=== PATIENT | male | born 1970 | race Two or more races ===

== ENCOUNTER → 2020-10-12 | Day surgery (SDC) | payer OTHER | END | disposition home or self-care (01) | LOC: ADM 10-11 14:45 → AMB-ENDOS 10:03 | PROVIDERS: ATTEND Colon & Rectal Surgery | DX: K62.5 Hemorrhage of anus and rectum (principal); K64.8 Other hemorrhoids; Z20.822 Contact with and (suspected) exposure to COVID-19; Z12.11 Encounter for screening for malignant neoplasm of colon ==

== ENCOUNTER 2023-10-16 07:04 | Day surgery (SDC) | payer OTHER ==
[2023-10-16] MEDS ORDERED: MIDAZOLAM HCL 2 MG/2 ML VIAL IV ONE (11:30)
[2023-10-16] MEDS ORDERED: fentaNYL CITRATE 50 MCG/ML AMPUL IV PUSH ONE (11:30)
[2023-10-16] MEDS ORDERED: ONDANSETRON HCL 2 MG/ML VIAL IV ONE (11:30)
[2023-10-16] MEDS ORDERED: DIPHENHYDRAMINE HCL 50 MG/ML VIAL 1ML IV ONE (11:30)
== END 2023-10-16 12:40 | disposition home or self-care (01) ==
LOC: AMB-ENDOS 07:04
PROVIDERS: ATTEND Colon & Rectal Surgery
DX: D12.3 Benign neoplasm of transverse colon (principal); D12.8 Benign neoplasm of rectum; K63.5 Polyp of colon; K64.8 Other hemorrhoids; Z88.1 Allergy status to other antibiotic agents